=== PATIENT | male | born 1965 | race African-American/Black ===

== ENCOUNTER 2022-08-17 15:17 | Inpatient (IN) | payer OTHER ==
[2022-08-17 17:02] VITALS: BMI 25.0
[2022-08-17] MEDS ORDERED: DICYCLOMINE HCL 10 MG CAPSULE PO PRN (18:43)
[2022-08-17] MEDS ORDERED: hydrOXYzine PAMOATE 25 MG CAPSULE (FP) PO PRN (18:43)
[2022-08-17] MEDS ORDERED: ACETAMINOPHEN 325 MG TABLET (FP) PO PRN ×2 (18:43)
[2022-08-17] MEDS ORDERED: NALOXONE HCL (KLOXXADO) 8 MG SPRAY NS PRN (18:43)
[2022-08-17] MEDS ORDERED: ONDANSETRON *ODT* 4 MG TABLET SL PRN (18:43)
[2022-08-17] MEDS ORDERED: MAG HYDROX/AL HYDROX/SIMETH 30 ML UNIT-DOSE CUP PO PRN (18:43)
[2022-08-17] MEDS ORDERED: diazePAM 5 MG TABLET PO PRN (18:43)
[2022-08-17] MEDS ORDERED: MAGNESIUM HYDROX 2400MG/30ML ORAL SUSPENSION 30 ML CUP PO PRN (18:43)
[2022-08-17] MEDS ORDERED: NICOTINE POLACRILEX 2 MG GUM BUC PRN (18:43)
[2022-08-17] MEDS ORDERED: POLYETHYLENE GLYCOL (HEALTHYLAX) 3350 17 GM PACKET PO PRN (18:43)
[2022-08-17] MEDS ORDERED: IBUPROFEN 600 MG TABLET (FP) PO PRN (18:43)
[2022-08-17] MEDS ORDERED: BISMUTH SUBSALICYLATE 524 MG/30 ML PO PRN (18:43)
[2022-08-17] MEDS ORDERED: IBUPROFEN 400 MG TABLET (FP) PO PRN (18:43)
[2022-08-17] MEDS ORDERED: BENZOCAINE/MENTHOL (CHLORASEPTIC ) LOZENGE MM PRN (18:43)
[2022-08-17] MEDS ORDERED: LOPERAMIDE HCL 2 MG CAPSULE PO PRN (18:43)
[2022-08-17] MEDS ORDERED: IBUPROFEN 600 MG TABLET (FP) PO ONE (20:43)
[2022-08-17] MEDS ORDERED: MELATONIN 5 MG TABLETS PO SCH (22:00)
[2022-08-17] MEDS: THIAMINE HCL 100 MG TABLET (FP) PO SCH (22:51)
[2022-08-17] MEDS: diazePAM 5 MG TABLET PO SCH (22:52)
[2022-08-17] MEDS: METHOCARBAMOL 500 MG TABLET PO PRN (22:52)
[2022-08-17] MEDS: PRENATAL VITAMINS W/ FOLIC ACID TABLET (FP) PO SCH (22:53)
[2022-08-18] MEDS: diazePAM 5 MG TABLET PO SCH ×4 (05:39→22:34)
[2022-08-18] MEDS ORDERED: methaDONE HCL 10 MG TABLET PO SCH (08:45)
[2022-08-18 09:26] LABS: HEMATOCRIT 32.5 % (35.4-49); HEMOGLOBIN 10.4 GM/dL (11.7-16.9); MCH 26.5 pg (25.7-33.7); MCHC 32.1 g/dl (32.0-35.9); MEAN CELL VOLUME 82.6 fl (80-96); PLATELET COUNT 274 10^3/uL (134-434); RBC 3.93 M/mm3 (4.00-5.60); RDW 14.7 % (11.9-15.9)
[2022-08-18 09:35] LABS: CREATININE 1.8 mg/dL (0.55-1.3)
[2022-08-18 09:36] LABS: BLOOD UREA NITROGEN 31.8 mg/dL (7-18)
[2022-08-18 09:37] LABS: BILIRUBIN,TOTAL 0.2 mg/dL (0.2-1); TOT PROT 5.7 g/dl (6.4-8.2)
[2022-08-18 09:38] LABS: CALCIUM 8.8 mg/dL (8.5-10.1)
[2022-08-18] MEDS: methaDONE 80 MG, methaDONE 20 MG PO SCH (09:49)
[2022-08-18] MEDS: PRENATAL VITAMINS W/ FOLIC ACID TABLET (FP) PO SCH (09:51)
[2022-08-18] MEDS: METHOCARBAMOL 500 MG TABLET PO PRN ×2 (09:51→22:32)
[2022-08-18] MEDS: THIAMINE HCL 100 MG TABLET (FP) PO SCH (22:33)
[2022-08-18] MEDS: MIRTAZAPINE 15 MG TABLET (FP) PO SCH (22:33)
[2022-08-18] MEDS: NICOTINE 10 MG CARTRIDGE (INHALER) IH PRN (22:39)
[2022-08-19] MEDS: methaDONE 80 MG, methaDONE 20 MG PO SCH (05:14)
[2022-08-19] MEDS: diazePAM 5 MG TABLET PO SCH ×3 (05:15→22:20)
[2022-08-19] MEDS: METHOCARBAMOL 500 MG TABLET PO PRN (09:55)
[2022-08-19] MEDS: PRENATAL VITAMINS W/ FOLIC ACID TABLET (FP) PO SCH (09:56)
[2022-08-19] MEDS: NICOTINE 10 MG CARTRIDGE (INHALER) IH PRN (10:01)
[2022-08-19] MEDS: MIRTAZAPINE 15 MG TABLET (FP) PO SCH (22:18)
[2022-08-19] MEDS: THIAMINE HCL 100 MG TABLET (FP) PO SCH (22:19)
[2022-08-20] MEDS ORDERED: diazePAM 5 MG TABLET PO SCH ×2 (06:00→18:00)
[2022-08-20] MEDS: methaDONE 80 MG, methaDONE 20 MG PO SCH (06:38)
[2022-08-20] MEDS: PRENATAL VITAMINS W/ FOLIC ACID TABLET (FP) PO SCH (10:21)
[2022-08-20 11:15] LABS: CALCIUM 9.3 mg/dL (8.5-10.1)
[2022-08-20 11:16] LABS: BLOOD UREA NITROGEN 34.4 mg/dL (7-18)
[2022-08-20 11:19] LABS: CREATININE 1.6 mg/dL (0.55-1.3)
[2022-08-20] MEDS: NICOTINE 10 MG CARTRIDGE (INHALER) IH PRN (12:59)
[2022-08-20] MEDS: METHOCARBAMOL 500 MG TABLET PO PRN (22:08)
[2022-08-20] MEDS: MIRTAZAPINE 15 MG TABLET (FP) PO SCH (22:08)
[2022-08-20] MEDS: THIAMINE HCL 100 MG TABLET (FP) PO SCH (22:08)
[2022-08-21] MEDS: methaDONE 80 MG, methaDONE 20 MG PO SCH (05:27)
[2022-08-21] MEDS: NICOTINE 10 MG CARTRIDGE (INHALER) IH PRN (05:30)
[2022-08-21] MEDS ORDERED: diazePAM 5 MG TABLET PO ONE (06:00)
[2022-08-21 06:13] VITALS: RESP 16
[2022-08-21 09:33] VITALS: BP 103/56; PULSE 71; TEMP 98.4
[2022-08-21] MEDS: PRENATAL VITAMINS W/ FOLIC ACID TABLET (FP) PO SCH (10:19)
== END 2022-08-21 12:23 | disposition other institution (70) | DRG 773 ==
LOC: YASAS 15:17 → Y3N 19:18
PROVIDERS: ADMIT Allergy & Immunology; ATTEND Surgery
PROC: HZ2ZZZZ Detoxification Services for Substance Abuse Treatment (ICD-10-PCS; principal; 2022-08-17)
DX: F10.230 Alcohol dependence with withdrawal, uncomplicated (principal); F11.20 Opioid dependence, uncomplicated; F14.20 Cocaine dependence, uncomplicated; F12.20 Cannabis dependence, uncomplicated; F17.210 Nicotine dependence, cigarettes, uncomplicated; F19.282 Other psychoactive substance dependence with psychoactive substance-induced sleep disorder; F43.10 Post-traumatic stress disorder, unspecified; F32.A Depression, unspecified; F41.9 Anxiety disorder, unspecified; G62.9 Polyneuropathy, unspecified; M54.50 Low back pain, unspecified; R79.89 Other specified abnormal findings of blood chemistry; Z86.59 Personal history of other mental and behavioral disorders; Z56.0 Unemployment, unspecified; Z59.00 Homelessness unspecified
CPT/HCPCS: 36415; 80048; 80053; 85027; 86780; 87811; 93005; 93010; C9803-CS; U0003; U0005

== ENCOUNTER 2024-06-10 11:56 | Inpatient (IN) | payer OTHER ==
[2024-06-10] MEDS ORDERED: BENZOCAINE/MENTHOL (CHLORASEPTIC ) LOZENGE MM PRN (18:07)
[2024-06-10] MEDS ORDERED: BENZONATATE 200 MG CAPSULE PO PRN (18:07)
[2024-06-10] MEDS ORDERED: IBUPROFEN 400 MG TABLET (FP) PO PRN (18:07)
[2024-06-10] MEDS ORDERED: BISMUTH SUBSALICYLATE 524 MG/30 ML PO PRN (18:07)
[2024-06-10] MEDS ORDERED: ONDANSETRON *ODT* 4 MG TABLET SL PRN (18:07)
[2024-06-10] MEDS ORDERED: DICYCLOMINE HCL 10 MG CAPSULE PO PRN (18:07)
[2024-06-10] MEDS ORDERED: LOPERAMIDE HCL 2 MG CAPSULE PO PRN (18:07)
[2024-06-10] MEDS ORDERED: IBUPROFEN 600 MG TABLET (FP) PO PRN (18:07)
[2024-06-10] MEDS ORDERED: NALOXONE (NARCAN) HCL 4 MG/0.1 ML SPRAY NS PRN (18:07)
[2024-06-10] MEDS ORDERED: MAG HYDROX/AL HYDROX/SIMETH 30 ML UNIT-DOSE CUP PO PRN (18:07)
[2024-06-10] MEDS ORDERED: guaiFENesin 600 MG TABLET.ER (FP) PO PRN (18:07)
[2024-06-10] MEDS ORDERED: NALOXONE HCL 0.4 MG/ML VIAL IM PRN (18:07)
[2024-06-10] MEDS: hydrOXYzine PAMOATE 25 MG CAPSULE (FP) PO PRN (20:16)
[2024-06-10] MEDS: METHOCARBAMOL 500 MG TABLET PO PRN (20:16)
[2024-06-10] MEDS: THIAMINE 100 MG TABLET PO SCH (23:43)
[2024-06-10] MEDS: MELATONIN 5 MG TABLETS PO SCH (23:43)
[2024-06-11] MEDS: PRENATAL VITAMINS W/ FOLIC ACID TABLET (FP) PO SCH (10:31)
[2024-06-11 11:09] LABS: CHLORIDE 108 mmol/L (98-107); HEMOGLOBIN 12.6 GM/dL (11.7-16.9); MCHC 33.2 g/dl (32.0-35.9); MEAN CELL VOLUME 84.5 fl (80-96); MEAN PLT VOLUME 8.2 fl (7.5-11.1); PLATELET COUNT 210 10^3/uL (134-434); RDW 14.5 % (11.9-15.9); SODIUM 141 mmol/L (136-145); WHITE BLOOD COUNT 5.5 K/mm3 (4.0-10.0)
[2024-06-11 11:17] LABS: ALBUMIN 3.5 g/dl (3.4-5.0); BLOOD UREA NITROGEN 30.7 mg/dL (7-18); CALCIUM 9.5 mg/dL (8.5-10.1)
[2024-06-11 11:18] LABS: ANION GAP 5 mmol/L (4-13); CO2 27 mmol/L (21-32); GLUCOSE,RANDOM 86 mg/dL (74-106)
[2024-06-11 11:20] LABS: SGOT/AST 28 U/L (15-37); SGPT/ALT 46 U/L (13-61)
[2024-06-11 11:22] LABS: TOT PROT 6.4 g/dl (6.4-8.2)
[2024-06-11 11:23] LABS: ALK PHOS 79 U/L (45-117)
[2024-06-11 11:25] LABS: BILIRUBIN,TOTAL 0.5 mg/dL (0.2-1)
[2024-06-11] MEDS: methaDONE HCL 10 MG TABLET (FOR DETOX USE ONLY) PO ONE (14:42)
[2024-06-11] MEDS: cloNIDine HCL 0.1 MG TABLET PO PRN (14:45)
[2024-06-12] MEDS: methaDONE HCL 10 MG TABLET PO ONE (11:38)
[2024-06-12] MEDS ORDERED: methaDONE HCL 10 MG TABLET PO PRN (12:35)
[2024-06-12] MEDS: cloNIDine HCL 0.1 MG TABLET PO SCH (13:59)
[2024-06-13] MEDS: ACETAMINOPHEN 325 MG TABLET (FP) PO PRN (03:17)
[2024-06-13] MEDS: methaDONE 40 MG, methaDONE 10 MG PO ONE (09:44)
[2024-06-13] MEDS ORDERED: methaDONE HCL 10 MG TABLET (FOR DETOX USE ONLY) PO ONE (10:00)
[2024-06-14] MEDS: methaDONE 40 MG, methaDONE 20 MG PO ONE (10:14)
[2024-06-14] MEDS: cloNIDine HCL 0.1 MG TABLET PO PRN (21:56)
[2024-06-14] MEDS: traZODone HCL 50 MG TABLET (FP) PO SCH (21:56)
[2024-06-15] MEDS: hydrOXYzine PAMOATE 25 MG CAPSULE (FP) PO ONE (01:53)
[2024-06-15] MEDS ORDERED: methaDONE HCL 10 MG TABLET (FOR DETOX USE ONLY) PO ONE (10:00)
[2024-06-15] MEDS: methaDONE 40 MG, methaDONE 30 MG PO ONE (10:21)
[2024-06-15] MEDS ORDERED: NICOTINE POLACRILEX 2 MG GUM BUC PRN (13:44)
[2024-06-15] MEDS: diphenhydrAMINE HCL 25 MG CAPSULE (FP) PO ONE (15:27)
[2024-06-15] MEDS: NICOTINE 14 MG/24 HOURS TOPICAL PATCH TD SCH (15:28)
[2024-06-15] MEDS: predniSONE 20 MG TABLET (UD) PO SCH (19:41)
[2024-06-16] MEDS: hydrOXYzine PAMOATE 25 MG CAPSULE (FP) PO ONE (03:17)
[2024-06-16] MEDS: methaDONE HCL 40 MG DISPERSABLE TABLET PO ONE (09:44)
[2024-06-16] MEDS: NALOXONE (NYS OPIOID OVERDOSE PROGRAM) 4 MG/0.1 ML SPRAY NS ONE (13:48)
[2024-06-16] MEDS ORDERED: NALOXONE (NYS OPIOID OVERDOSE PROGRAM) 4 MG/0.1 ML SPRAY NS PRN ×2 (14:21→14:33)
[2024-06-16] MEDS: MAGNESIUM HYDROX 2400MG/30ML ORAL SUSPENSION 30 ML CUP PO PRN (21:41)
[2024-06-17] MEDS: POLYETHYLENE GLYCOL (HEALTHYLAX) 3350 17 GM PACKET PO PRN (07:22)
[2024-06-17] MEDS: methaDONE 80 MG, methaDONE 10 MG PO ONE (10:14)
[2024-06-18 06:19] VITALS: RESP 16
[2024-06-18 09:02] VITALS: BP 157/89; PULSE 72; TEMP 97.1
[2024-06-18] MEDS ORDERED: methaDONE HCL 10 MG TABLET PO ONE (10:00)
[2024-06-18] MEDS: LISINOPRIL 10 MG TABLET PO SCH (10:04)
[2024-06-18] MEDS: BISACODYL 5 MG TABLET.DR (FP) PO ONE (10:05)
[2024-06-18] MEDS: methaDONE 80 MG, methaDONE 10 MG PO ONE (10:05)
== END 2024-06-18 11:43 | disposition other institution (70) | DRG 773 ==
LOC: YASAS 11:56 → Y3N 17:58
PROVIDERS: ADMIT Allergy & Immunology; ATTEND Surgery
PROC: HZ2ZZZZ Detoxification Services for Substance Abuse Treatment (ICD-10-PCS; principal; 2024-06-10)
DX: F11.23 Opioid dependence with withdrawal (principal); F14.20 Cocaine dependence, uncomplicated; F12.20 Cannabis dependence, uncomplicated; F17.210 Nicotine dependence, cigarettes, uncomplicated; F19.24 Other psychoactive substance dependence with psychoactive substance-induced mood disorder; F41.9 Anxiety disorder, unspecified; F32.A Depression, unspecified; F43.10 Post-traumatic stress disorder, unspecified; G47.00 Insomnia, unspecified; Z59.00 Homelessness unspecified; Z56.0 Unemployment, unspecified
CPT/HCPCS: 36415; 73630-TC-LT; 80053; 80305; 80307; 85027; 86780; 93005; 93010

== ENCOUNTER 2024-06-18 12:12 | Inpatient (IN) | payer OTHER ==
[2024-06-18] MEDS ORDERED: MAG HYDROX/AL HYDROX/SIMETH 30 ML UNIT-DOSE CUP PO PRN (14:13)
[2024-06-18] MEDS ORDERED: BENZOCAINE/MENTHOL (CHLORASEPTIC ) LOZENGE MM PRN (14:13)
[2024-06-18] MEDS ORDERED: POLYETHYLENE GLYCOL (HEALTHYLAX) 3350 17 GM PACKET PO PRN (14:13)
[2024-06-18] MEDS ORDERED: BENZONATATE 200 MG CAPSULE PO PRN (14:13)
[2024-06-18] MEDS ORDERED: NALOXONE (NARCAN) HCL 4 MG/0.1 ML SPRAY NS PRN (14:13)
[2024-06-18] MEDS ORDERED: LOPERAMIDE HCL 2 MG CAPSULE PO PRN (14:13)
[2024-06-18] MEDS ORDERED: IBUPROFEN 400 MG TABLET (FP) PO PRN (14:13)
[2024-06-18] MEDS ORDERED: IBUPROFEN 600 MG TABLET (FP) PO PRN (14:13)
[2024-06-18] MEDS ORDERED: NALOXONE HCL 0.4 MG/ML VIAL IVPUSH PRN (14:13)
[2024-06-18] MEDS ORDERED: guaiFENesin 600 MG TABLET.ER (FP) PO PRN (14:13)
[2024-06-18] MEDS: MELATONIN 5 MG TABLETS PO SCH (22:14)
[2024-06-18] MEDS: THIAMINE 100 MG TABLET PO SCH (22:14)
[2024-06-18] MEDS: hydrOXYzine PAMOATE 25 MG CAPSULE (FP) PO PRN (22:16)
[2024-06-18] MEDS: METHOCARBAMOL 500 MG TABLET PO PRN (22:16)
[2024-06-19] MEDS ORDERED: methaDONE HCL 10 MG TABLET PO SCH (06:00)
[2024-06-19] MEDS: methaDONE 80 MG, methaDONE 10 MG PO SCH (06:13)
[2024-06-19] MEDS: PRENATAL VITAMINS W/ FOLIC ACID TABLET (FP) PO SCH (11:00)
[2024-06-19] MEDS: SUVOREXANT 10 MG TABLET PO PRN (21:10)
[2024-06-20] MEDS ORDERED: NICOTINE 21 MG/24 HOURS TOPICAL PATCH TD PRN (10:39)
[2024-06-20] MEDS ORDERED: NICOTINE POLACRILEX 4 MG GUM BUC PRN (10:39)
[2024-06-20] MEDS ORDERED: NICOTINE POLACRILEX 4 MG LOZENGE BC PRN (10:39)
[2024-06-20] MEDS: hydrOXYzine PAMOATE 25 MG CAPSULE (FP) PO PRN (21:53)
[2024-06-21] MEDS: LISINOPRIL 10 MG TABLET PO SCH (16:54)
[2024-06-22 12:07] LABS: POTASSIUM 5.2 mmol/L (3.5-5.1)
[2024-06-22 12:22] LABS: CALCIUM 9.6 mg/dL (8.5-10.1)
[2024-06-22 12:23] LABS: ALBUMIN 3.8 g/dl (3.4-5.0); BLOOD UREA NITROGEN 45.4 mg/dL (7-18)
[2024-06-22 12:28] LABS: TOT PROT 6.9 g/dl (6.4-8.2)
[2024-06-22 12:29] LABS: BILIRUBIN,TOTAL 0.6 mg/dL (0.2-1)
[2024-06-22] MEDS ORDERED: LISINOPRIL 10 MG TABLET PO SCH (14:08)
[2024-06-22] MEDS: SODIUM POLYSTYRENE SULFONATE 15 GM/60 ML BOTTLE PO ONE (14:45)
[2024-06-23] MEDS: amLODIPine BESYLATE 5 MG TABLET (FP) PO SCH (10:29)
[2024-06-23] MEDS: amLODIPine BESYLATE 2.5 MG TABLET (FP) PO ONE (13:25)
[2024-06-24] MEDS: amLODIPine BESYLATE 2.5 MG TABLET (FP) PO SCH (09:49)
[2024-06-24] MEDS: BENZOCAINE 20 % GEL TUBE MM PRN (18:32)
[2024-06-24] MEDS: ACETAMINOPHEN 325 MG TABLET (FP) PO PRN (20:30)
[2024-06-25] MEDS: cloNIDine HCL 0.1 MG TABLET PO PRN (06:27)
[2024-06-26] MEDS: amLODIPine BESYLATE 2.5 MG TABLET (FP) PO ONE (12:45)
[2024-06-27] MEDS: amLODIPine BESYLATE 10 MG TABLET (FP) PO SCH (10:21)
[2024-07-01] MEDS: MAGNESIUM HYDROX 2400MG/30ML ORAL SUSPENSION 30 ML CUP PO PRN (01:01)
[2024-07-06] MEDS: AMOX TR/POT CLAV 500MG/125MG TABLETS (FP) PO SCH (16:44)
[2024-07-20 06:28] VITALS: TEMP 97.5
[2024-07-20 08:48] VITALS: BP 124/72; PULSE 81; RESP 18
== END 2024-07-20 13:55 | disposition home or self-care (01) | DRG 772 ==
LOC: YASAS 12:12 → Y3NR 12:17 → Y3W 06-19 10:37
PROVIDERS: ADMIT Surgery; ATTEND Psychiatry & Neurology Pain Medicine
PROC: HZ42ZZZ Group Counseling for Substance Abuse Treatment, Cognitive-Behavioral (ICD-10-PCS; principal; 2024-06-18)
DX: F11.20 Opioid dependence, uncomplicated (principal); F14.20 Cocaine dependence, uncomplicated; F12.20 Cannabis dependence, uncomplicated; F17.210 Nicotine dependence, cigarettes, uncomplicated; F19.282 Other psychoactive substance dependence with psychoactive substance-induced sleep disorder; F32.A Depression, unspecified; F41.9 Anxiety disorder, unspecified; I12.9 Hypertensive chronic kidney disease with stage 1 through stage 4 chronic kidney disease, or unspecified chronic kidney disease; N18.9 Chronic kidney disease, unspecified; N17.9 Acute kidney failure, unspecified; E87.5 Hyperkalemia; K02.9 Dental caries, unspecified; K08.89 Other specified disorders of teeth and supporting structures; Z59.00 Homelessness unspecified
CPT/HCPCS: 36415; 80053; 80305; 84132; 86803; 87811; 93005; 93010